=== PATIENT | male | born 1990 | race Caucasian/White ===

== ENCOUNTER 2020-04-14 11:07 | Emergency (ER) | payer OTHER ==
[~2020-04-14] VITALS: Ht 172.7 cm; Wt 90.9 kg
[2020-04-14 11:19] VITALS: BP 123/92
[2020-04-14] MEDS ORDERED: FLUORESCEIN OPHTHALMIC 1 MG STRIP ONE (11:28)
== END 2020-04-14 12:28 | disposition home or self-care (01) ==
LOC: ED 12:15
DX: S05.02XA Injury of conjunctiva and corneal abrasion without foreign body, left eye, initial encounter (principal); X58.XXXA Exposure to other specified factors, initial encounter; Y93.89 Activity, other specified; Y92.009 Unspecified place in unspecified non-institutional (private) residence as the place of occurrence of the external cause; Y99.8 Other external cause status
CPT/HCPCS: 65222; 99284